=== PATIENT | female | born 1960 | race Two or more races ===

== ENCOUNTER 2020-12-24 21:22 | Emergency (ER) | payer MEDICARE, OTHER ==
[~2020-12-24] VITALS: Ht 160 cm; Wt 65.8 kg
--- NOTE | 2020-12-24 21:35 | NUR ---
BIB [facility] from home for c/o falling backwards and sustained laceration on back of head; ETOH. A/O X3, no SOB or labored breathing, afebrile.
--- NOTE | 2020-12-24 21:36 | NUR ---
Dr. Yan at bedside, MSE in progress.
--- NOTE | 2020-12-24 21:57 | NUR ---
PT TAKEN DOWN FOR CT.
--- NOTE | 2020-12-24 22:15 | NUR ---
PT RETURNED FORM CT.
--- NOTE | 2020-12-24 22:47 | NUR ---
Patient discharged to home in stable condition. A/O x4, no SOB or labored breathing. Afebrile. Denies any pain/discomfort. Written and verbal after care instructions given. Patient verbalizes understanding of instructions. Stressed follow up or return to ER for worsening s/s. steady gait. Picked up by .
[2020-12-24 22:48] VITALS: BP 119/54
== END 2020-12-24 22:50 | disposition home or self-care (01) ==
LOC: ER 21:24
DX: S01.01XA Laceration without foreign body of scalp, initial encounter (principal); W01.0XXA Fall on same level from slipping, tripping and stumbling without subsequent striking against object, initial encounter; Y92.039 Unspecified place in apartment as the place of occurrence of the external cause; F10.129 Alcohol abuse with intoxication, unspecified
CPT/HCPCS: 70450; A4217; A4663

== ENCOUNTER 2021-01-01 12:24 | Emergency (ER) | payer MEDICARE, OTHER ==
[~2021-01-01] VITALS: Ht 160 cm; Wt 54.0 kg
--- NOTE | 2021-01-01 12:30 | NUR ---
at bedside for assessment
--- NOTE | 2021-01-01 13:35 | NUR ---
PT WAS D/C'd TO HOME. D/C INSTRUCTIONS GIVEN TO THE PT BY DR [email or web address].
[2021-01-01 13:36] VITALS: BP 121/62
== END 2021-01-01 13:36 | disposition home or self-care (01) ==
LOC: ER 12:24
DX: S06.0X1A Concussion with loss of consciousness of 30 minutes or less, initial encounter (principal); R40.2362 Coma scale, best motor response, obeys commands, at arrival to emergency department; R40.2142 Coma scale, eyes open, spontaneous, at arrival to emergency department; R40.2252 Coma scale, best verbal response, oriented, at arrival to emergency department; W19.XXXA Unspecified fall, initial encounter; Y92.89 Other specified places as the place of occurrence of the external cause; Z88.2 Allergy status to sulfonamides; S01.01XD Laceration without foreign body of scalp, subsequent encounter; W19.XXXD Unspecified fall, subsequent encounter
CPT/HCPCS: 70450; A4663